=== PATIENT | female | born 1975 | race Caucasian/White ===

== ENCOUNTER 2023-02-23 17:26 | Emergency (ER) | payer OTHER ==
[2023-02-23] MEDS ORDERED: Dextrose 5%-Lactated Ringers 1,000 ML IV SCH (17:45)
[2023-02-23] MEDS ORDERED: HYDROmorphone 1 MG/ML Syringe IVPUSH ONE (17:49)
[2023-02-23] MEDS ORDERED: Metoclopramide 10 MG/2 ML SDV IVPUSH ONE (17:49)
[2023-02-23] MEDS ORDERED: LORazepam 2 MG/ML SDV IVPUSH ONE (17:50)
[2023-02-23] MEDS ORDERED: Lidocaine 1% 50 ML MDV INJECT ONE (18:15)
[2023-02-23] MEDS ORDERED: ceFAZolin 1 GM in Sodium Chloride 0.9% 50 ML IV ONE (19:54)
== END 2023-02-23 20:44 | disposition home or self-care (01) ==
LOC: JD.ED 17:26
DX: S81.812A Laceration without foreign body, left lower leg, initial encounter (principal); F17.210 Nicotine dependence, cigarettes, uncomplicated; Z91.030 Bee allergy status; Z91.018 Allergy to other foods; V86.56XA Driver of dirt bike or motor/cross bike injured in nontraffic accident, initial encounter; Y92.410 Unspecified street and highway as the place of occurrence of the external cause
CPT/HCPCS: 96361; 96365; 96375; 99283; J0690; J1170; J2060; J2765; J3490; J7121; 12036; 99284